=== PATIENT | female | born 1950 | race Caucasian/White ===

== ENCOUNTER 2020-06-03 10:41 | Outpatient (CLI) | payer MEDICARE, OTHER | END 2020-06-03 10:42 | disposition home or self-care (01) | LOC: NS 10:41 | PROVIDERS: ATTEND Physician Assistant | DX: Z71.3 Dietary counseling and surveillance (principal); E11.9 Type 2 diabetes mellitus without complications | CPT/HCPCS: 97802 ==

== ENCOUNTER 2020-06-17 10:47 | Outpatient (CLI) | payer MEDICARE, OTHER | END 2020-06-17 10:48 | disposition home or self-care (01) | LOC: NS 10:47 | PROVIDERS: ATTEND Physician Assistant | DX: Z71.3 Dietary counseling and surveillance (principal); E11.9 Type 2 diabetes mellitus without complications | CPT/HCPCS: 97803 ==

== ENCOUNTER 2020-07-12 17:21 | Observation (INO) | payer MEDICARE, OTHER ==
--- NOTE | 2020-07-12 17:50 | XRAY Report ---
PROCEDURE: Chest 1 View X-Ray INDICATIONS: Chest pain TECHNIQUE: One view of the chest was acquired. COMPARISON: None. FINDINGS: Surgical changes and devices: None. Lungs and pleura: Mild left upper lobe infiltrates. No pleural effusions or pneumothorax. Mediastinum: Mediastinal contours appear normal. Heart size is normal. Bones and chest wall: No suspicious bony lesions. Overlying soft tissues appear unremarkable. IMPRESSION: Note left upper lobe infiltrate suspicious for developing pneumonia. Reviewed by: Santos Valadez MD on 07/12/2020 4:48 PM AKDT Approved by: Santos Valadez MD on 07/12/2020 4:48 PM AKDT Station ID: [id number]
--- NOTE | 2020-07-12 17:54 | ED Physician Documentation ---
PD HPI CHEST PAIN - Stated complaint Stated Complaint: MAURY SALDANA - Chief complaint Chief Complaint: Cardiac - History obtained from History obtained from: Patient - Additional information Additional information: 69-year-old woman with history of paroxysmal atrial fibrillation on Eliquis status post remote ablation. She has had a stress test and angiography before. She says she had a clean angiogram about 3 years ago in [place]. 3 nights ago she had about an hour of chest pressure associated with A. fib on her watch. Then she had another episode this morning. Then she had an exertional episode of chest pain not associated with A. fib on her watch and still has residual chest pressure and she is been more short of breath for the last 2 weeks. She does have history of COPD and was started on Advair 2 weeks ago which has not been helpful. Review of Systems Ten Systems: 10 systems reviewed and negative Constitutional: denies: Fever, Chills, Myalgias Cardiac: reports: Chest pain / pressure, Palpitations. denies: Pedal edema, Calf pain Respiratory: reports: Dyspnea PD PAST MEDICAL HISTORY - Past Medical History Cardiovascular: Hypertension, High cholesterol, Atrial fibrillation Respiratory: COPD Neuro: Tremors Endocrine/Autoimmune: Type 2 diabetes, HyPERthyroidism Musculoskeletal: Osteoporosis - Past Surgical History General: Cholecystectomy, Hiatal hernia repair /COSMETICIAN: Hysterectomy - Present Medications Home Medications: Ambulatory Orders Medication Instructions Recorded Confirmed Apixaban [Eliquis] 5 mg PO DAILY 05/05/20 05/05/20 Atorvastatin Calcium 40 mg PO DAILY 05/05/20 05/05/20 Cholecalciferol [Vitamin D3] 5,000 unit PO DAILY 05/05/20 05/05/20 Diclofenac/Met Salicyl/Menthol 418 gm TP QID PRN 05/05/20 05/05/20 [Diclopr Combo Pack] Glimepiride [Amaryl] 1 mg PO DAILY 05/05/20 05/05/20 Lisinopril [Prinivil] 5 mg PO DAILY 05/05/20 05/05/20 Metformin HCl [Glucophage] 1,000 mg PO BID 05/05/20 05/05/20 Metoprolol Succinate [Toprol Xl] 100 mg PO DAILY 05/05/20 05/05/20 Montelukast Sodium 10 mg PO DAILY 05/05/20 05/05/20 - Allergies Allergies/Adverse Reactions: Allergies Allergy/AdvReac Type Severity Reaction Status Date / Time amino acids [From Ephadrene] Allergy Hives Verified 07/12/20 17:30 chromium [From Ephadrene] Allergy Hives Verified 07/12/20 17:30 cyanocobalamin (vitamin B12) Allergy Hives Verified 07/12/20 17:30 [From Ephadrene] erythromycin base Allergy Unknown Verified 07/12/20 17:30 Fish Containing Products Allergy Unknown Verified 07/12/20 17:30 formaldehyde Allergy Unknown Verified 07/12/20 17:30 herbal complex no. 35 Allergy Hives Verified 07/12/20 17:30 [From Ephadrene] Penicillins Allergy Hives Verified 07/12/20 17:30 propoxyphene [From Darvon] Allergy Unknown Verified 07/12/20 17:30 pyridoxine [From Ephadrene] Allergy Hives Verified 07/12/20 17:30 shellfish derived Allergy Anaphylaxis Verified 07/12/20 17:30 tetracycline Allergy Hives Verified 07/12/20 17:30 - Social History Smoking Status: Never smoker PD ED PE NORMAL - Vitals Vital signs reviewed: Yes - General General: Alert and oriented X 3, No acute distress - HEENT HEENT: PERRL, EOMI - Neck Neck: Supple, no meningeal sign, No bony TTP - Cardiac Cardiac: RRR, No murmur - Respiratory Respiratory: No respiratory distress, Clear bilaterally - Abdomen Abdomen: Soft, Non tender - Back Back: No CVA TTP, No spinal TTP - Derm Derm: Normal color, Warm and dry - Extremities Extremities: No edema, No calf tenderness / cord - Neuro Neuro: Alert and oriented X 3, Normal speech Results - Vitals Vitals: Vital Signs - 24 hr 07/12/20 07/12/20 07/12/20 17:30 18:03 18:30 Temperature 36.7 C 36.6 C Heart Rate 103 H 90 89 Respiratory 18 22 26 H Rate Blood Pressure 175/87 H 190/90 H 183/83 H O2 Saturation 99 98 99 07/12/20 07/12/20 19:08 19:37 Temperature Heart Rate 80 78 Respiratory 20 18 Rate Blood Pressure 191/76 H 188/97 H O2 Saturation 98 98 Oxygen O2 Source Room air - EKG (time done) 1732 Rate: Rate (enter#) (89) Rhythm: NSR Epworth: Normal Intervals: Prolonged MT QRS: Normal Ischemia: Normal ST segments Computer interpretation: Agree with computer - Labs Labs: Laboratory Tests 07/12/20 07/12/20 07/12/20 17:50 17:50 17:50 WBC 8.3 RBC 4.43 Hgb 11.9 L Hct 37.7 MCV 85.1 MCH 26.9 L MCHC 31.6 L RDW 14.7 Plt Count 340 MPV 9.6 Neut # (Auto) 4.2 Lymph # (Auto) 3.6 H [place] # (Auto) 0.5 Eos # (Auto) 0.0 Baso # (Auto) 0.0 Absolute Nucleated RBC 0.00 Nucleated RBC % 0.0 Sodium 138 Potassium 4.0 Chloride 103 Carbon Dioxide 23 Anion Gap 12.0 BUN 15 Creatinine 0.7 Estimated GFR (MDRD) 83 L Glucose 177 H Calcium 9.4 Total Bilirubin 0.8 AST 19 ALT 21 Alkaline Phosphatase 104 Troponin I High Sens 4.2 Total Protein 7.8 Albumin 4.2 Globulin 3.6 Albumin/Globulin Ratio 1.2 Lipase 28 PD MEDICAL DECISION MAKING - ED course ED course: 69-year-old woman with multiple comorbidities and risk factors for ischemic heart disease presents with worrisome typical chest pain, chest x-ray shows pneumonia and she says she is a mild increase in her chronic cough but not terrible. No fevers. Gave her Zithromax for same noting penicillin allergy. I do not this think this explains or at least a completely explains her symptoms. She knows that she has a history of COPD which is not from smoking but from working at [employer] after 12/25. Troponin is negative and EKG is nonischemic but heart score is still 6. As such, spoke with Dr Gee for obs for rule out and stress after his shift change. Departure - Departure Disposition: ED Place in Observation Clinical Impression: Chest pain Condition: Stable
[2020-07-12 18:11] LABS: BASOPHILS % (AUTO) 0.1 %; HCT - HEMATOCRIT 37.7 % (37.0-47.0); HGB - HEMOGLOBIN 11.9 g/dL (12.0-16.0); LYMPHOCYTES # (AUTO) 3.6 10^3/uL (1.5-3.5); MEAN CORPUSCULAR HEMOGLOBIN 26.9 pg (27.0-31.0); MEAN CORPUSCULAR HGB CONC 31.6 g/dL (32.0-36.0); MEAN CORPUSCULAR VOLUME 85.1 fL (81.0-99.0); MEAN PLATELET VOLUME 9.6 fL (7.9-10.8); MONOCYTES # (AUTO) 0.5 10^3/uL (0.0-1.0); MONOCYTES % (AUTO) 5.6 %; NEUTROPHILS # (AUTO) 4.2 10^3/uL (1.5-6.6); NEUTROPHILS % (AUTO) 50.9 %; PLT - PLATELET COUNT 340 10^3/uL (130-450); RED BLOOD COUNT 4.43 10^6/uL (4.20-5.40); RED CELL DISTRIBUTION WIDTH 14.7 % (12.0-15.0); WHITE BLOOD COUNT 8.3 x10^3/uL (4.8-10.8)
[2020-07-12 18:28] LABS: ALBUMIN 4.2 g/dL (3.2-5.5); ALBUMIN/GLOBULIN RATIO 1.2 (1.0-2.2); BILIRUBIN,TOTAL 0.8 mg/dL (0.2-1.0); CALCIUM 9.4 mg/dL (8.5-10.3); CREATININE 0.7 mg/dL (0.4-1.0); TOTAL PROTEIN 7.8 g/dL (6.7-8.2)
[2020-07-12] MEDS ORDERED: AZITHROMYCIN 250 MG TABLET PO STA (19:09)
[2020-07-12] MEDS ORDERED: SODIUM CHLORIDE FLUSH 0.9% 10 ML SYRINGE IVP PRN (19:46)
[2020-07-12] MEDS ORDERED: ACETAMINOPHEN 325 MG TABLET PO PRN (19:46)
--- NOTE | 2020-07-12 19:51 | HISTORY & PHYSICAL EXAMINATION ---
Chief Complaint - Chief Complaint Chief Complaint: Chest pain History of Present Illness - Admitted From Admitted From:: Home - History Obtained From Records Reviewed: Yes History obtained from: Patient, ER Physician, EMR - History of Present Illness HPI Comment/Other: This is a pleasant 69-year-old female with a past medical history significant for paroxysmal atrial fibrillation, type 2 diabetes mellitus, hypertension who presents today complaining of chest pain. She states that she first developed chest pain 3 days ago and noticed that she was in atrial fibrillation. She states normally she has 2-3 episodes of atrial fibrillation a year but has now had two episodes over the past 3 days. When she noticed she was in atrial fibrillation, she took her metoprolol and went to sleep. When she woke up, her chest pain was resolved and she was in sinus rhythm. She noted that today when she was doing laundry, she developed chest pressure again and noticed that she was in atrial fibrillation she has an apple watch. She states her pain was nonradiating. It is mostly a pressure but can occasionally be a sharp pain. No nausea, vomiting. No dizziness, lightheadedness, syncope. She reports looking at her rhythm strip and her recommended they go to the emergency department. She states on her way to the emergency department, she converted back to a sinus rhythm and she has since been chest pain-free. She reports having an angiogram back in 2006 when she was diagnosed with pericarditis and there was concern for ischemia at that time. She was told she had clean coronaries. She has undergone 2 ablations with the most recent being about 3 years ago at [facility]. She still takes metoprolol and Eliquis. 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 She reports her most recent stress test was about 7 years ago and that was unremarkable. Besides the chest pain, she reports she has been short of breath for the past few weeks. She saw her primary care provider who prescribed her Advair but she has not found much relief. She states she was diagnosed with COPD although she was a non-smoker. She developed COPD when she worked at [employer] for 6 months. She states is a chronic cough but it has become productive over the past 2 weeks with yellow sputum. She feels no shortness of breath at rest but does feel more short of breath with exertion. In the emergency department, she was found to be afebrile with a temperature of 36.6 C. Heart rate was in the 80s. Her blood pressure was 190/90. She was n ot tachypneic and saturating well on room air. Labs were unremarkable including a normal troponin. Chest x-ray was concerning for a developing left upper lobe infiltrate. Her EKG revealed sinus rhythm without evidence of ischemia. Given her risk factors and chest pain, medicine was consulted for admission. I did discuss goals of care with the patient and she would like to be a DNR. 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 Living arrangement: At home Living Situation: With spouse/s.o. Social History Notes: She just moved to [facility] 2 months ago from [place], [place]. She has never smoked. She does not drink alcohol. Meds/Allgy - Home Medications Home Medications: Ambulatory Orders Medication Instructions Recorded Confirmed Apixaban [Eliquis] 5 mg PO DAILY 05/05/20 05/05/20 Atorvastatin Calcium 40 mg PO DAILY 05/05/20 05/05/20 Cholecalciferol [Vitamin D3] 5,000 unit PO DAILY 05/05/20 05/05/20 Diclofenac/Met Salicyl/Menthol 418 gm TP QID PRN 05/05/20 05/05/20 [Diclopr Combo Pack] Glimepiride [Amaryl] 1 mg PO DAILY 05/05/20 05/05/20 Lisinopril [Prinivil] 5 mg PO DAILY 05/05/20 05/05/20 Metformin HCl [Glucophage] 1,000 mg PO BID 05/05/20 05/05/20 Metoprolol Succinate [Toprol Xl] 100 mg PO DAILY 05/05/20 05/05/20 Montelukast Sodium 10 mg PO DAILY 05/05/20 05/05/20 - Allergies Allergies/Adverse Reactions: Allergies Allergy/AdvReac Type Severity Reaction Status Date / Time amino acids [From Ephadrene] Allergy Hives Verified 07/12/20 17:30 chromium [From Ephadrene] Allergy Hives Verified 07/12/20 17:30 cyanocobalamin (vitamin B12) Allergy Hives Verified 07/12/20 17:30 [From Ephadrene] erythromycin base Allergy Unknown Verified 07/12/20 17:30 Fish Containing Products Allergy Unknown Verified 07/12/20 17:30 formaldehyde Allergy Unknown Verified 07/12/20 17:30 herbal complex no. 35 Allergy Hives Verified 07/12/20 17:30 [From Ephadrene] Penicillins Allergy Hives Verified 07/12/20 17:30 propoxyphene [From Darvon] Allergy Unknown Verified 07/12/20 17:30 pyridoxine [From Ephadrene] Allergy Hives Verified 07/12/20 17:30 shellfish derived Allergy Anaphylaxis Verified 07/12/20 17:30 tetracycline Allergy Hives Verified 07/12/20 17:30 Review of Systems - Constitutional Constitutional: denies: Fatigue, Fever, Chills, Weakness - Cardiovascular Cariovascular: reports: Irregular heart rate, Chest pain, Exertional dyspnea, Decr. exercise tolerance. denies: Palpitations, Lightheadedness, Syncope - Respiratory Respiratory: reports: Cough, Sputum production, SOB with exertion. denies: Wheezing, SOB at rest - Gastrointestinal Gastrointestinal: denies: Abdominal pain, Constipation, Nausea, Vomiting - Genitourinary Genitourinary: denies: Dysuria, Frequency, Urgency, Hematuria - Neurological Neurological: denies: General weakness, Focal weakness, Dizziness - All Other Systems All Other Systems: reports: Reviewed and negative Prior Level of Functionality: She is independent with her ADL's. Exam - Vital Signs Reviewed Vital Signs: Yes Vital Signs: Vital Signs x48h Temp Pulse Resp BP Pulse Ox 07/12/20 19:37 78 18 188/97 H 98 07/12/20 19:08 80 20 191/76 H 98 07/12/20 18:30 89 26 H 183/83 H 99 07/12/20 18:03 36.6 C 90 22 190/90 H 98 07/12/20 17:30 36.7 C 103 H 18 175/87 H 99 - Physical Exam General Appearance: positive: No acute distress, Alert Eyes Bilateral: positive: Normal inspection, Conjunctivae nml ENT: positive: ENT inspection nml Neck: positive: Nml inspection Respiratory: positive: No respiratory distress. negative: Wheezes, Rales Cardiovascular: positive: Regular rate & rhythm, No murmur. negative: Tachycardia Abdomen: positive: Non-tender, No distention. negative: Tenderness Skin: positive: Warm, Dry Extremities: positive: No pedal edema Neurologic/Psychiatric: positive: Motor nml. negative: Disoriented to person, Disoriented to place, Disoriented to time Conclusion/Plan - Problem List (1) Chest pain Conclusion/Plan: Although this appears to be associated with her atrial fibrillation, she does have multiple risk factors with an elevated heart score. Her EKG does not appear to suggest ischemia and her initial troponin is negative. We will make her n.p.o. at midnight for stress test. If she develops further chest pain then we will give her aspirin otherwise we will just continue her Eliquis. We will also resume her beta-rachel tomorrow evening. We will monitor on telemetry and trend troponin. (2) Community acquired pneumonia Conclusion/Plan: Although she has no white count or fever, she does have a worsening productive cough and dyspnea on exertion. Chest x-ray is also concerning for left upper lobe infiltrate. She received azithromycin in the emergency department. We will also place her on Ceftin and continue the azithromycin. Qualifiers: Laterality: left Lung location: upper lobe of lung Qualified Code(s): J18.9 - Pneumonia, unspecified organism (3) Paroxysmal atrial fibrillation Conclusion/Plan: This appears to be associated with her chest pain and I believe is the likely cause but given she has multiple risk factors, will need to rule out underlying ischemia.She is currently in a sinus rhythm. We will continue her metoprolol and Eliquis. (4) COPD (chronic obstructive pulmonary disease) Conclusion/Plan: This is stable and not in exacerbation. We will continue her on formoterol and budesonide with albuterol as needed. (5) Hypertension Conclusion/Plan: She is hypertensive with systolic in the 180s. Her blood pressure is normally well controlled with systolic in the 120s and never higher than 140. We will c ontinue her current dose of metoprolol and lisinopril. If her blood pressure remains poorly controlled then we will increase her lisinopril. (6) Type 2 diabetes mellitus Conclusion/Plan: She is on Metformin and glimepiride at home. We will place her on carb controlled diet and sliding scale. - Lab Results Lab results reviewed: Yes Fish Bones: 07/12/20 17:50 07/12/20 17:50 - Diagnostic Imaging Results Diagnostic Imaging Results: positive: Final report reviewed - EKG Results EKG Interpreted Independently: Yes EKG Comparison: No prior EKG EKG Findings: EKG shows sinus rhythm with a first-degree AV block. No ST segment changes. Core Measures - Anticipated LOS I expect patient to be DC'd or transferred within 96 hours.: Yes - Issues Hospital Issues and Management Plan: 77-year-old female with a past medical history significant for type 2 diabetes mellitus, paroxysmal atrial fibrillation, hypertension who presents with chest pain. Will place in observation for stress test given her multiple risk factors. - DVT/VTE - Prophylaxis VTE/DVT Device ordered at admit?: No Not Ordered - Medical Reason: Not indicated VTE/DVT Prophylaxis med ordered at admit?: No Not Ordered - Medical Reason: Not indicated
[2020-07-12] MEDS ORDERED: INSULIN ASPART 300 UNIT/3 ML PEN SUBQ SCH (21:00)
[2020-07-12 21:17] LABS: B. PARAPERTUSSIS- RESP PCR PAN NOT DETECTED; B. PERTUSSIS- RESP PCR PANEL NOT DETECTED; C. PNEUMONIAE- RESP PCR PANEL NOT DETECTED; CORONAVIRUS 229E-RESP PCR NOT DETECTED; CORONAVIRUS HKU1-RESP PCR NOT DETECTED; CORONAVIRUS NL63-RESP PCR NOT DETECTED; CORONAVIRUS OC43-RESP PCR NOT DETECTED; HUMAN METAPNEUMOVIRUS NOT DETECTED; INFLUENZA A- RESP PCR PANEL NOT DETECTED; INFLUENZA B - RESP PCR PANEL NOT DETECTED; M. PNEUMONIAE- RESP PCR PANEL NOT DETECTED; PARAINFLUENZA VIRUS 1 NOT DETECTED; PARAINFLUENZA VIRUS 2 NOT DETECTED; PARAINFLUENZA VIRUS 3 NOT DETECTED; PARAINFLUENZA VIRUS 4 NOT DETECTED; RHINOVIRUS/ENTEROVIRUS NOT DETECTED; RSV- RESP PCR PANEL NOT DETECTED; SARS-CoV-2 -RESP PCR PANEL NOT DETECTED
[2020-07-12] MEDS ORDERED: ATORVASTATIN 40 MG TABLET PO SCH (22:10)
[2020-07-12] MEDS ORDERED: ALBUTEROL NEB 2.5 MG/3 ML INH PRN (22:19)
[2020-07-12] MEDS: APIXABAN 5 MG TABLET PO SCH (22:54)
[2020-07-12] MEDS ORDERED: lisinopriL 5 MG TABLET PO SCH (23:00)
[2020-07-12] MEDS: BUDESONIDE 0.5 MG/2 ML NEB INH SCH (23:08)
[2020-07-12] MEDS: FORMOTEROL FUMARATE NEB 20 MCG/2 ML INH SCH (23:08)
[2020-07-12] MEDS ORDERED: CALCIUM CARBONATE CHEW 500 MG TABLET PO PRN (23:37)
[2020-07-13] MEDS ORDERED: diphenhydrAMINE 25 MG CAPSULE PO PRN (00:16)
[2020-07-13] MEDS: SODIUM CHLORIDE FLUSH 0.9% 10 ML SYRINGE IVP SCH ×2 (00:21→09:54)
[2020-07-13 05:50] LABS: BASOPHILS % (AUTO) 0.1 %; EOSINOPHILS # (AUTO) 0.1 10^3/uL (0.0-0.7); EOSINOPHILS % (AUTO) 1.5 %; HCT - HEMATOCRIT 35.2 % (37.0-47.0); HGB - HEMOGLOBIN 11.1 g/dL (12.0-16.0); LYMPHOCYTES # (AUTO) 3.5 10^3/uL (1.5-3.5); LYMPHOCYTES % (AUTO) 46.3 %; MEAN CORPUSCULAR HEMOGLOBIN 26.6 pg (27.0-31.0); MEAN CORPUSCULAR HGB CONC 31.5 g/dL (32.0-36.0); MEAN CORPUSCULAR VOLUME 84.2 fL (81.0-99.0); MEAN PLATELET VOLUME 9.5 fL (7.9-10.8); MONOCYTES # (AUTO) 0.4 10^3/uL (0.0-1.0); MONOCYTES % (AUTO) 5.9 %; NEUTROPHILS # (AUTO) 3.5 10^3/uL (1.5-6.6); NEUTROPHILS % (AUTO) 45.9 %; PLT - PLATELET COUNT 309 10^3/uL (130-450); RED BLOOD COUNT 4.18 10^6/uL (4.20-5.40); RED CELL DISTRIBUTION WIDTH 14.6 % (12.0-15.0); WHITE BLOOD COUNT 7.5 x10^3/uL (4.8-10.8)
[2020-07-13 05:59] LABS: CALCIUM 8.8 mg/dL (8.5-10.3); CREATININE 0.7 mg/dL (0.4-1.0); POTASSIUM 3.8 mmol/L (3.5-5.0)
[2020-07-13] MEDS: BUDESONIDE 0.5 MG/2 ML NEB INH SCH (07:40)
[2020-07-13] MEDS: FORMOTEROL FUMARATE NEB 20 MCG/2 ML INH SCH (07:40)
[2020-07-13] MEDS ORDERED: lisinopriL 5 MG TABLET PO SCH (09:00)
[2020-07-13] MEDS ORDERED: AZITHROMYCIN 250 MG TABLET PO SCH (09:00)
[2020-07-13] MEDS ORDERED: METOPROLOL SUCCINATE 50 MG TABLET PO SCH ×2 (09:00→21:00)
[2020-07-13] MEDS ORDERED: levoFLOXacin 250 MG TABLET PO SCH (09:00)
[2020-07-13] MEDS: APIXABAN 5 MG TABLET PO SCH (09:51)
[2020-07-13] MEDS ORDERED: INSULIN REGULAR HUMAN 300 UNIT/3 ML VIAL SUBQ SCH (12:00)
[2020-07-13] MEDS ORDERED: INSULIN ASPART 300 UNIT/3 ML PEN SUBQ SCH ×2 (12:00)
[2020-07-13] MEDS ORDERED: REGADENOSON 0.4 MG/5 ML SYRINGE IVP ONE (12:16)
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
--- NOTE | 2020-07-13 13:27 | Discharge Plan ---
Discharge Plan Problem Reviewed?: Yes Disposition: Home, Self Care Condition: Stable Prescriptions: levoFLOXacin [Levaquin] 500 mg PO DAILY #6 tablet Diet: Diabetic Activity Restrictions: Activity as Tolerated Shower Restrictions: No Driving Restrictions: No Health Concerns: You have a history of atrial fibrillation, and are on anticoagulation and rate control because of it. You presented to the emergency room with chest pain due to a fast, fast heart rate from atrial fibrillation. We placed you in observation status to make sure you were not having a heart attack. The blood test for heart attack were negative. They are call troponins and they were all normal. You underwent a stress test with imaging of your heart muscle and that was normal as well. Plan of Treatment: 1. Follow-up with your primary care provider in the next 2 to 3 weeks. 2. There is no change in your heart medication. 3. 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 Your chest x-ray shows a possible developing new pneumonia in the left upper lung. As such you received 2 doses of Levaquin in the hospital. We would like you to take 3 more days of Levaquin to make sure. Care Goals: To be rate controlled. Complete treatment for possible pneumonia. Assessment: Understands care goals and will follow through. 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 No Smoking: If you smoke, Please STOP! Call for help. Follow-up with: BAILEE YIP PA [Primary Care Provider] -
--- NOTE | 2020-07-13 14:00 | PHARMACY PROGRESS NOTE ---
- Best Possible Medication History Admit Date and Time: 07/12/201945 Processed by: Pharmacy Medication History completed: Yes Patient Interview: Completed (Patient interviewed by Puja 07/13) Secondary Source(s): Pharmacy records As the person ultimately responsible for medication therapy, providers are able to order a medication from an existing home medication list in [facility] via the "Reconcile Routine" prior to Confirmation of that medication by sales support assistant. Such practice is discouraged except when the physician, in their clinical judgment, deems that a medical need exists for a medication without regard to previous use.
--- NOTE | 2020-07-13 16:55 | Nuclear Medicine Report ---
PROCEDURE: Rest and pharmacological myocardial perfusion SPECT with gated imaging and ejection fraction INDICATIONS: Chest pain. RADIOPHARMACEUTICAL: 13.4 mCi Tc-99m Myoview IV at rest and 44.7 mCi Tc-99m Myoview IV at peak exerc ise. [id number] was performed. TECHNIQUE: Radiopharmaceutical was injected at peak stress test, and also at rest. SPECT images wer e obtained. SPECT myocardial perfusion images were displayed in short axis, horizontal long axis, an d vertical long axis views. Gated images were reviewed using Auto[employer] software. COMPARISON: None available. FINDINGS: Raw data: There is good myocardial labeling by radiotracer. No significant motion artifacts. Lung- to-heart ratio is 0.32 (normal is less than 0.38 for tetrafosmin tracer). Left ventricle function: Gated images demonstrate normal left ventricle wall thickening. No segment al wall motion abnormality. No transient ischemic dilation; TID is 1.02 (normal less than 1.3). The left ventricle resting end-diastolic volume is normal. Left ventricle ejection fraction is > 70%; n ormal values are above 45%. Myocardial perfusion: There is normal distribution of activity in the left and right ventricular juan antonio cardium. No fixed or reversible perfusion defects. IMPRESSION: 1. Normal myocardial perfusion images. No perfusion defect to suggest myocardial ischemia or infarct. 2. Normal left ventricular volume and systolic function. 3. Please correlate with stress EKG result. PQRS ATTESTATIONS: Measure 322 - Is this imaging test primarily performed on a low-risk surgery patient for preoperative evaluation within 30 days preceding their low-risk non-cardiac surgery? Low-risk surgery is defined as cardiac or myocardial infarction less than 1%, including (but not limited to) endoscopic pr ocedures, superficial procedures, cataract surgery, and excisional breast surgery: Answer: No Measure 323 - Is this imaging test performed primarily for the monitoring of an asymptomatic patient who had percutaneous coronary intervention on the visit date or within 2 years of the visit date? An swer: No Measure 324 - Is this imaging test performed primarily for the initial detection and risk assessment on an asymptomatic, low coronary heart disease patient? Low CHD risk definition = clinicians should consider the maximum number of available patient factors used to estimate risk based on [place] (A TP III criteria), typically age, gender, diabetes, smoking status, and use of blood pressure medicati on, and integrate age appropriate estimates for missing elements, such as LDL or standard blood press ure. Answer: No Reviewed by: Santos Valadez MD on 07/13/2020 3:54 PM DAISY Approved by: Santos Valadez MD on 07/13/2020 3:54 PM DAISY Station ID: [id number]
--- NOTE | 2020-07-13 17:13 | DISCHARGE SUMMARY ---
"Discharge Summary Admit Date: 07/12/20 Discharge Date: 07/13/20 Discharging Provider: Radha Evans MD Primary Care Provider: Tavia Menjivar PA-C Code Status: Do Not Attempt Resuscitation (per her wishes) Condition at Discharge: Stable Discharge Disposition: 01 Home, Self Care - DIAGNOSES Discharge Diagnoses with Status of Each Condition: 1. Atypical chest pain 2. Possible community-acquired pneumonia, left lower lobe 3. Paroxysmal atrial fibrillation with RVR 4. COPD 5. Hypertension 6. Type 2 diabetes mellitus, without complication, not on long-term insulin - HPI History of Present Illness: This is a pleasant 69-year-old female with a past medical history significant for paroxysmal atrial fibrillation, type 2 diabetes mellitus, hypertension who presents today complaining of chest pain. She states that she first developed chest pain 3 days ago and noticed that she was in atrial fibrillation. She stat es normally she has 2-3 episodes of atrial fibrillation a year but has now had two episodes over the past 3 days. When she noticed she was in atrial fibrillation, she took her metoprolol and went to sleep. When she woke up, her chest pain was resolved and she was in sinus rhythm. She noted that today when she was doing laundry, she developed chest pressure again and noticed that she was in atrial fibrillation she has an apple watch. She states her pain was nonradiating. It is mostly a pressure but can occasionally be a sharp pain. No nausea, vomiting. No dizziness, lightheadedness, syncope. She reports looking at her rhythm strip and [facility] She states on her way to the emergency department, she converted back to a sinus rhythm and she has since been chest pain-free. She reports having an angiogram back in 2006 when she was diagnosed with pericarditis and there was concern for ischemia at that time. She was told she had clean coronaries. She has undergone 2 ablations with the most recent being about 3 years ago at [facility]. She still takes metoprolol and Eliquis. She follows up with her gis technician on a yearly basis. She reports her most recent stress test was about 7 years ago and that was unremarkable. Besides the chest pain, she reports she has been short of breath for the past few weeks. She saw her primary care provider who prescribed her Advair but she has not found much relief. She states she was diagnosed with COPD although she was a non-smoker. She developed COPD when she worked at [employer] for 6 months. She states is a chronic cough but it has become productive over the past 2 weeks with yellow sputum. She feels no shortness of breath at rest but does feel more short of breath with exertion. In the emergency department, she was found to be afebrile with a temperature of 36.6 C. Heart rate was in the 80s. Her blood pressure was 190/90. She was not tachypneic and saturating well on room air. Labs were unremarkable including a normal troponin. Chest x-ray was concerning for a developing left upper lobe infiltrate. Her EKG revealed sinus rhythm without evidence of ischemia. Given her risk factors and chest pain, medicine was consulted for admission. 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 Chest x-ray with left upper lobe infiltrate suspicious for developing pneumonia 2. Preliminary echocardiogram report is a technically excellent study. Mild concentric left ventricular hypertrophy. Systolic function with ejection fraction 65 to 70%. Right ventricle normal. Moderate increase left atrial volume index. Right atrial size normal. Focal sclerosis of noncoronary aortic valve cusp. No clinically significant valvular heart disease. Final report must be reviewed by her primary care provider or gis technician. 3. Lexiscan myocardial perfusion stress test. Normal myocardial perfusion images. No perfusion defect to suggest myocardial ischemia or infarct. Baseline and stress EKG with nondiagnostic mild ST elevation in 2 and aVF and V4 through V6. Early R wave progression. Normal sinus rhythm. - HOSPITAL COURSE Hospital Course: Because of the abnormal chest x-ray she was started on Levaquin azithromycin and Ceftin. However she reports a mild allergic reaction to cephalosporins in the past. With the Ceftin she felt like her tongue was thicker. On examination there was no findings. No drug rash. No throat closing no wheezing. She was switched to Levaquin single agent and will be completing 5 days of antibiotic therapy with Levaquin. Serial troponins were negative. Supersensitive troponin levels were 4.2, second set 4.2, third set 3.6. High normal for troponin I high-sensitivity is 14.8. Lexiscan stress test was done. Patient is not able to complete a Ranjit protocol due to her COPD. She says that she gets moderately short of breath with even minimal activity. She can walk a mile but has to do it very slowly. As such Lexiscan was done. Myocardial perfusion imaging was negative at stress and rest. No fixed or reversible perfusion defects. The patient was felt to be stable for discharge. Exam at discharge had a temperature of 36.6. Pulse of 76 and sinus rhythm. Blood pressure 164/72. Respirations 16. 97% on room air. She is a 5 foot 7 inch white female who looks her stated age at 87 kg. She is alert, oriented. No acute distress. JVD is not present. Neck is supple. Lungs are clear to auscultation and percussion. PMI is normally placed with a regular rate and rhythm and a systolic flow murmur. The abdomen is benign. Extremities are without edema. She ambulates without any assistance, ataxia, or respiratory distress. She is asked to see her primary care provider in follow-up. She is followed by a AYAH Sharma. She also sees a gis technician, Dr Ren Guevara, with [facility] in the [facility] in [place]. I have sent him a copy of this discharge summary to fax number [phone]. - ALLERGIES Allergies/Adverse Reactions: Allergies Allergy/AdvReac Type Severity Reaction Status Date / Time amino acids [From Ephadrene] Allergy Hives Verified 07/12/20 17:30 chromium [From Ephadrene] Allergy Hives Verified 07/12/20 17:30 cyanocobalamin (vitamin B12) Allergy Hives Verified 07/12/20 17:30 [From Ephadrene] erythromycin base Allergy Unknown Verified 07/12/20 17:30 Fish Containing Products Allergy Unknown Verified 07/12/20 17:30 formaldehyde Allergy Unknown Verified 07/12/20 17:30 herbal complex no. 35 Allergy Hives Verified 07/12/20 17:30 [From Ephadrene] Penicillins Allergy Hives Verified 07/12/20 17:30 propoxyphene [From Darvon] Allergy Unknown Verified 07/12/20 17:30 pyridoxine [From Ephadrene] Allergy Hives Verified 07/12/20 17:30 shellfish derived Allergy Anaphylaxis Verified 07/12/20 17:30 tetracycline Allergy Hives Verified 07/12/20 17:30 - MEDICATIONS Home Medications: Ambulatory Orders Medication Instructions Recorded Confirmed Apixaban [Eliquis] 5 mg PO BID 05/05/20 07/13/20 Atorvastatin Calcium 40 mg PO DAILY 05/05/20 07/13/20 Cholecalciferol [Vitamin D3] 5,000 unit PO DAILY 05/05/20 07/13/20 Diclofenac/Met Salicyl/Menthol 418 gm TP QID PRN 05/05/20 07/13/20 [Diclopr Combo Pack] Glimepiride [Amaryl] 1 mg PO DAILY 05/05/20 07/13/20 Lisinopril [Prinivil] 5 mg PO DAILY 05/05/20 07/13/20 Metformin HCl [Glucophage] 1,000 mg PO BID 05/05/20 07/13/20 Metoprolol Succinate [Toprol Xl] 100 mg PO DAILY 05/05/20 07/13/20 Montelukast Sodium 10 mg PO DAILY 05/05/20 07/13/20 Fluticasone/Salmeterol [Advair 1 inh INH BID 07/13/20 07/13/20 250-50 Diskus] Methimazole [Tapazole] 5 mg PO DAILY 07/13/20 07/13/20 levoFLOXacin [Levaquin] 500 mg PO DAILY #6 tablet 07/13/20 - LABS Result Diagrams: 07/13/20 05:35 07/13/20 05:35"
[2020-07-13 17:55] VITALS: BP 162/58
[2020-07-13] MEDS ORDERED: MONTELUKAST 10 MG TABLET PO SCH (21:00)
== END 2020-07-13 16:05 | disposition home or self-care (01) ==
LOC: ED 17:21 → MS2 19:46
PROVIDERS: ADMIT Internal Medicine; ATTEND Specialist
DX: R07.89 Other chest pain (principal); J18.9 Pneumonia, unspecified organism; I48.0 Paroxysmal atrial fibrillation; Z79.01 Long term (current) use of anticoagulants; J43.9 Emphysema, unspecified; I10 Essential (primary) hypertension; E11.9 Type 2 diabetes mellitus without complications; Z79.84 Long term (current) use of oral hypoglycemic drugs; Z88.0 Allergy status to penicillin; Z82.49 Family history of ischemic heart disease and other diseases of the circulatory system; R77.8 Other specified abnormalities of plasma proteins
CPT/HCPCS: 36415; 71045; 78452; 80048; 80053; 83690; 84443; 84484; 85025; 87631; 93005; 93017; 93306; 94640; 99284; 99285; A9270; A9500; G0378; J2785; J7626; 0202U

== ENCOUNTER 2020-08-26 10:41 | Outpatient (CLI) | payer MEDICARE, OTHER | END 2020-08-26 10:42 | disposition home or self-care (01) | LOC: NS 10:41 | PROVIDERS: ATTEND Physician Assistant | DX: Z71.3 Dietary counseling and surveillance (principal); E11.9 Type 2 diabetes mellitus without complications | CPT/HCPCS: 97803 ==